=== PATIENT | male | born 1970 | race Caucasian/White ===

== ENCOUNTER 2020-01-23 16:59 | Inpatient (IN) ==
--- NOTE | 2020-01-23 17:26 | Emergency Department Note ---
Impression & Plan Acute upper abdominal pain ED Provider Note INFORMANT: Patient ED PROVIDER(S): Robel Henley MD CHIEF COMPLAINT: Chest pain PLAN: Disposition: Admitted Condition: Good MEDICAL DECISION MAKING: Patient presented with upper abdominal pain and substernal chest pain complaints. His ECG did not reveal any acute findings. Physical examination did reveal tenderness in the epigastrium. Patient declined analgesia initially. He had blood work obtained. He was prepped for CT imaging. He did have mild leukocytosis on CBC. Chemistry panel was unremarkable. The patient underwent CT imaging and this did not reveal any acute intra-abdominal findings. Chest imaging was negative as well. The patient had an elevated troponin. In light of this he was given a dose of oral aspirin and Nitropaste was applied. He was mildly hypertensive. He may have had a cardiac event in the recent days given the duration of symptoms and elevated troponin. Hemodynamically he is stable at this point time. He will need further evaluation in the hospital. Consultation was made with Dr. Hitchcock of the hospitalist service. The patient was evaluated and admitted for further treatment. Triage Nursing notes reviewed and agree them. Additional history obtained from patient's . Vital Signs: reviewed and remarkable for mild hypertension Differential diagnosis: PUD, pancreatitis, biliary pathology, cardiac sources, Appendicitis, testicular torsion, infections, diverticulitis, UTI, obstruction, mesenteric ischemia, aortic pathology, inflammatory bowel disease, renal colic, hernia, volvulus, constipation, as well as other pathologies. Diagnostics interpreted by me: ECG: Rate:82 Rhythm:Normal sinus [place]:Normal QRS:Normal ST segements:No elevation or depression Other:No PACs or PVCs Cardiac Monitoring: Cardiac monitoring ordered by me: The patient was placed on continuous cardiac monitoring and observed. It revealed a normal sinus rhythm at 85beats per minute without ectopy or evidence of dysrhythmia. Imaging studies: Chest x-ray. Findings: A chest x-ray was performed and revealed no pneumothorax, effusion, infiltrate, pulmonary edema, free air under the diaphragm, or wide mediastinum. Impression: No acute disease. CT scan of the abdomen pelvis with IV and oral contrast was performed and was negative for acute process. Consultation(s): [facility] service HPI: The patient is a 49 year old male who presents to the Emergency Room with complaints of epigastric abdominal/ substernal chest pain. This started several days ago and is persisting. The patient also notes the following associated symptoms, pain radiating to the shoulders and left elbow, pain radiating to the back. The patient has found no relieving factors. Current pain is rated as 5/10. No prior surgeries or similar issues in the past. Pt denies LOC, headache, fevers, chills, diaphoresis, visual changes, neck pain, chest pain, breathing difficulties, nausea, vomiting, back pain, melena, hematochezia, urinary symptoms, numbness, weakness, lymphadenopathy, rash, or other complaints. ROS: See above HPI for pertinent positives & negatives. A total of 10 systems reviewed and were otherwise negative. PAST MEDICAL HISTORY:See Below, acid reflux PAST SURGICAL HISTORY:See Below, wisdom teeth FAMILY HISTORY:See Below SOCIAL HISTORY:See Below, occasional alcohol. Smokes. HOME MEDICATIONS:See Below ALLERGIES:See Below VITALS:See Below PHYSICAL EXAMINATION: GENERAL: Awake, alert, mildly uncomfortable-appearing, in no distress HENT: Normocephalic, atraumatic. Oropharynx unremarkable. EYES: Normal conjunctiva. Sclera non-icteric. NECK: Inspection normal. Non-tender. Supple. No nuchal rigidity. FROM. No masses. RESPIRATORY: Clear to auscultation. No wheezes. No rales. Normal respiratory effort. CARDIAC: Normal rate. Normal rhythm. No murmurs. No rubs. Extremities warm and well perfused. Pulses equal. No JVD. GI: Soft, non-distended. Bilateral upper quadrant and epigastric tenderness to palpation. No rebound or guarding. No masses. RECTAL: Deferred. MUSCULOSKELETAL: Atraumatic. Chest examination reveals no tenderness. The back is symmetrical on inspection without obvious abnormality. There is no CVA tenderness to palpation. No joint edema. LOWER EXTREMITIES: Calves are equal size bilaterally and non-tender. No edema. No discoloration. NEURO: Normal sensorium. No sensory or motor deficits noted. SKIN: No rash or jaundice noted. ED COURSE: Critical Care: None Robel Henley MD Past Med/Surg History Medical History (Updated 01/23/20 @ 17:23 by Robel Henley MD) Sleep apnea Vitamin D deficiency Surgical History S/P wisdom tooth extraction Family History Father , Secondary to Epileptic seizure in late 30's. Epilepsia Mother , at age 38 from MVC No problems noted. Grandmother (Maternal) Brain cancer Grandfather (Maternal) Diabetes Hypertension Brother Patent ductus arteriosus Pacemaker Pacer/Defibrillator Heart disease Grandmother Cancer Other No family history of bleeding disorder Denies family history of Ovarian cancer Prostate cancer Hearing loss Allergies Myocardial infarction Breast cancer Colorectal cancer Stroke Asthma Social History Smoking Status: Current every day smoker Tobacco Type: Cigarettes Age Started Using Tobacco: 16; packs per day: 0.5; Second Hand Exposure: Yes; Hx Alcohol Use: Yes Alcohol type: beer Alcohol Intake Frequency: 4 or More x per/Week Hx Substance Use: No Preferred Language: Danish Communication Ability: Effective Visual Impairment: No Limitations Hearing Ability: Normal marital status: Current Living Situation: Spouse current occupational status: employed 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 Feels Safe at Home: Yes Childhood Exposure to Second-Hand Smoke: Yes Dental Care, Regularly: Yes Physical Activity Frequency: 5-6 Times per Week Seatbelt Use: sometimes Sunscreen Use: No Do you think of yourself as: straight/heterosexual Allergies Allergies Allergy/AdvReac Type Severity Reaction Status Date / Time prednisone AdvReac Severe Difficulty Verified 01/23/20 18:21 Breathing venom-honey bee AdvReac Unknown Swelling Verified 01/23/20 18:21 of Lip/Tongue/Throat Home Meds Home Medications Medication Instructions Recorded Confirmed acetaminophen 500 mg tablet 500 mg PO Q6H PRN 05/19/19 01/23/20 cholecalciferol (vitamin D3) 50 50 mcg PO DAILY 05/19/19 01/23/20 mcg (2,000 unit) capsule omeprazole 20 mg capsule,delayed 20 mg PO DAILY 05/19/19 01/23/20 release ascorbic acid (vitamin C) 1,000 mg 2 g PO DAILY tab 12/08/19 01/23/20 tablet cetirizine 10 mg tablet 10 mg PO DAILY 12/08/19 01/23/20 ibuprofen 200 mg tablet 200 mg PO QID PRN tab 12/08/19 01/23/20 multivitamin 1 tab PO DAILY 12/08/19 01/23/20 turmeric 400 mg capsule 500 mg PO DAILY cap 12/08/19 01/23/20 fluticasone propionate 2 spray INTRANASAL DAILY 01/23/20 01/23/20 Previous Rx's Medication Instructions Recorded azelastine 137 mcg (0.1 %) nasal 2 spray INTNAS BID #30 ml 09/21/19 spray aerosol montelukast 10 mg tablet 10 mg PO QPM #30 tab 09/21/19 cyclobenzaprine 10 mg tablet 10 mg PO TID PRN #30 tab 09/27/19 tadalafil 20 mg tablet See Rx Instructions PO DAILY PRN 10/27/19 #18 tab Results & Data (ED) Vital Signs Vital Signs - 24 hr 01/23/20 17:06 01/23/20 17:28 01/23/20 19:03 Temperature 37.0 C Temperature Source Oral Pulse Rate 86 89 Pulse Rate [Apical] 90 87 Pulse Rhythm Regular Respiratory Rate 18 20 20 Respiratory Effort / Characteristics Non-Labored Spontaneous Non-Labored Spontaneous Non-Labored Spontaneous Respiratory Depth Normal Normal Normal Respiratory Pattern Regular Regular Regular Blood Pressure 158/93 H Blood Pressure [Right Arm] 153/98 H 140/92 Blood Pressure Mean 114 Blood Pressure Mean [Right Arm] 116 108 Pulse Oximetry 96 96 94 Oxygen Delivery Method Room Air Room Air Room Air Sepsis Recent Fever Within 48 Hours No Sepsis New/Unexplained Change in Mental Status No Sepsis Action Taken by Nursing No Action Required Laboratory Data Result diagrams: 01/23/20 17:21 01/23/20 17:21 Lab Results 01/23/20 01/23/20 01/23/20 Range/Units 17:21 17:21 17:21 WBC 12.97 H (4.8-10.8) K/uL RBC 5.16 (4.7-6.1) M/uL Hgb 15.2 (14.0-18.0) g/dL Hct 43.9 (42-52) % MCV 85.1 (80-100) fL MCH 29.5 (25-34) pg MCHC 34.6 (32-36) g/dL RDW Std Deviation 40.7 (36.4-46.3) fL RDW Coeff of [place] 13.2 (11.5-14.5) % Plt Count 347 (130-400) K/uL MPV 9.1 (7.4-10.4) fL Immature Gran % (Auto) 0.2 % Neut % (Auto) 67.6 % Lymph % (Auto) 18.2 % [place] % (Auto) 9.4 % Eos % (Auto) 4.1 % Baso % (Auto) 0.5 % Neut # (Auto) 8.77 H (1.4-6.5) K/uL Lymph # (Auto) 2.36 (1.2-3.4) K/uL [place] # (Auto) 1.22 H (0.11-0.59) K/uL Eos # (Auto) 0.53 H (0-0.5) K/uL Baso # (Auto) 0.06 (0-0.2) K/uL Immature Gran # (Auto) 0.03 H (0.00-0.02) K/uL PT 10.7 (9.0-12.0) Seconds INR 1.0 (0.9-1.1) APTT 30.1 (21.0-31.0) Seconds PTT Ratio 1.1 Sodium 139 (136-145) mmol/L Potassium 4.2 (3.5-5.1) mmol/L Chloride 107 (98-107) mmol/L Carbon Dioxide 28 (21-32) mmol/L Anion Gap 4.0 (3-11) BUN 19 H (7-18) mg/dl Creatinine 0.97 (0.6-1.4) mg/dl Est Cr Clr Drug Dosing 121.2 ml/min Est GFR ( Amer) 105.8 Est GFR (Non-Af Amer) 91.3 BUN/Creatinine Ratio 19.9 (10-20) Glucose 94 (70-99) mg/dl Calcium 9.3 (8.5-10.1) mg/dl Total Bilirubin 0.2 (0.2-1) mg/dl AST 24 (15-37) U/L ALT 44 (12-78) U/L Alkaline Phosphatase 80 (45-117) U/L Troponin I 0.431 H* (0-0.045) ng/ml Total Protein 7.7 (6.4-8.2) gm/dl Albumin 3.8 (3.4-5.0) gm/dl Globulin 3.9 (2.5-4.0) gm/dl Albumin/Globulin Ratio 1.0 (0.9-2) Lipase 219 (73-393) U/L Administered Medications Discontinued Medications Aspirin (Aspirin Chew 324 Mg) 324 mg PO NOW STA Stop: 01/23/20 18:55 Last Admin: 01/23/20 19:08 Dose: 324 mg Documented by: [id number] Ioversol (Ioversol 100ml) 91 ml IV ONCE ONE Stop: 01/23/20 18:22 Last Admin: 01/23/20 18:21 Dose: 91 ml Documented by: [id number] Nitroglycerin (Nitroglycerin 2% Ointment 30gm Tube) 0.5 inch EXT NOW STA Stop: 01/23/20 18:55 Last Admin: 01/23/20 19:08 Dose: 0.5 inch Documented by: [id number] Discharge Plan Visit Data Chief Complaint: Chest Pain Stated Complaint: CHEST PAIN ED Provider: Robel Henley Discharge Problem: Acute upper abdominal pain Forms Stand Alone Forms: [facility] Prescriptions Prescriptions: No Action cyclobenzaprine 10 mg tablet 10 mg PO TID PRN (Reason: muscle spasm) Qty: 30 RF: 0 tadalafil [Cialis] 20 mg tablet See Rx Instructions PO DAILY PRN (Reason: sexual activity) Qty: 18 RF: 2 omeprazole 20 mg capsule,delayed release(DR/EC) 20 mg PO DAILY RF: 0 cholecalciferol (vitamin D3) 50 mcg (2,000 unit) capsule 50 mcg PO DAILY RF: 0 acetaminophen [Tylenol Extra Strength] 500 mg tablet 500 mg PO Q6H PRN (Reason: Pain) RF: 0 montelukast [Singulair] 10 mg tablet 10 mg PO QPM Qty: 30 RF: 5 azelastine 137 mcg (0.1 %) aerosol,spray 2 spray INTNAS BID Qty: 30 RF: 2 cetirizine [Zyrtec] 10 mg tablet 10 mg PO DAILY RF: 0 multivitamin Tablet 1 tab PO DAILY RF: 0 turmeric 400 mg capsule 500 mg PO DAILY RF: 0 ascorbic acid (vitamin C) 1,000 mg tablet 2 g PO DAILY RF: 0 ibuprofen 200 mg tablet 200 mg PO QID PRN (Reason: Pain) RF: 0 fluticasone propionate 50 mcg/actuation spray,suspension 2 spray intranasal DAILY RF: 0
[2020-01-23 17:31] LABS: Basophils # (auto) 0.06 K/uL (0-0.2); Basophils % (auto) 0.5 %; Eosinophils # (auto) 0.53 K/uL (0-0.5); Eosinophils % (auto) 4.1 %; Hematocrit (blood only) 43.9 % (42-52); Hemoglobin 15.2 g/dL (14.0-18.0); Immature Granulocytes # (auto) 0.03 K/uL (0.00-0.02); Immature Granulocytes % (auto) 0.2 %; Lymphocytes # (auto) 2.36 K/uL (1.2-3.4); Lymphocytes % (auto) 18.2 %; Mean Corpuscular Hemoglobin 29.5 pg (25-34); Mean Corpuscular Hgb Conc 34.6 g/dL (32-36); Mean Corpuscular Volume 85.1 fL (80-100); Mean Platelet Volume 9.1 fL (7.4-10.4); Monocytes # (auto) 1.22 K/uL (0.11-0.59); Monocytes % (auto) 9.4 %; Neutrophils # (auto) 8.77 K/uL (1.4-6.5); Neutrophils % (auto) 67.6 %; Platelet Count 347 K/uL (130-400); RDW Coefficient of Variation 13.2 % (11.5-14.5); RDW Standard Deviation 40.7 fL (36.4-46.3); Red Blood Count 5.16 M/uL (4.7-6.1); White Blood Count 12.97 K/uL (4.8-10.8)
[2020-01-23 17:46] LABS: Partial Thromboplastin Ratio 1.1; Partial Thromboplastin Time 30.1 Seconds (21.0-31.0); Prothrombin Time 10.7 Seconds (9.0-12.0)
[2020-01-23 17:48] LABS: Albumin Level 3.8 gm/dl (3.4-5.0); BUN Creatinine Ratio 19.9 (10-20); Calcium 9.3 mg/dl (8.5-10.1); Creatinine Clr Calc Pharmacy 121.2 ml/min; Est GFR (African American) 105.8; Est GFR (Non-African American) 91.3; Potassium 4.2 mmol/L (3.5-5.1)
[2020-01-23 17:54] LABS: Bilirubin,Total 0.2 mg/dl (0.2-1); Globulin 3.9 gm/dl (2.5-4.0); Total Protein 7.7 gm/dl (6.4-8.2); Troponin I 0.431 ng/ml (0-0.045)
--- NOTE | 2020-01-23 18:00 | XRay Report ---
XR chest 1V portable HISTORY: Atypical Chest Pain COMPARISON: None. FINDINGS: The lungs are clear. The cardiac silhouette is mildly enlarged. No pleural effusions. No pn eumothorax. No evidence for pulmonary edema. No focal lung consolidations to suggest pneumonia. IMPRESSION: Mild cardiomegaly. ACT 112: Negative or not required by law. Electronically signed by: Jorge Weir M.D. 01/23/2020 5:59 PM
[2020-01-23] MEDS ORDERED: IOVERSOL 100ml IV ONE (18:21)
--- NOTE | 2020-01-23 18:49 | CT Scan Report ---
ABDOMEN AND PELVIS CT WITH IV AND ORAL CONTRAST CT DOSE: 1277.65 mGy.cm HISTORY: epigastric abd pain. short oral prep please. TECHNIQUE: Multiaxial CT images of the abdomen and pelvis were performed following the use of intrave nous and oral contrast. A dose lowering technique was utilized adhering to the principles of ALARA. COMPARISON STUDY: None. FINDINGS: A few bibasilar linear densities consistent with subsegmental atelectasis. A single promine nt right pericardial lymph node measuring 9 mm. No pneumoperitoneum. No pneumatosis. No suspicious ly tic or blastic osseous lesions. Tiny fat-containing bilateral inguinal hernias. The liver, gallbladde r, pancreas, spleen, adrenal glands, and kidneys are within normal limits. No hydronephrosis. The sadaf n portal vein is patent. Normal caliber abdominal aorta. Mild calcified plaque within the abdominal a mindy. No retroperitoneal lymphadenopathy. There is a left circumaortic renal vein. The bladder is unr emarkable. No pelvic free fluid. No bowel wall thickening or obstruction. Normal appendix. IMPRESSION: 1. No bowel wall thickening or obstruction. 2. Normal appendix. 3. No hydronephrosis. ACT 112: Negative or not required by law. Electronically signed by: Jorge Weir M.D. 01/23/2020 6:48 PM
[2020-01-23] MEDS ORDERED: NITROGLYCERIN 2% OINTMENT 30GM TUBE EXT STA (18:54)
[2020-01-23] MEDS ORDERED: ASPIRIN CHEW 324 MG PO STA (18:54)
--- NOTE | 2020-01-23 19:42 | History & Physical Report ---
Date of Service January 23, 2020 Assessment & Plan (1) Epigastric pain: Pt is a 49yo with a PMHx of chronic sinusitis, seasonal allergies, dizziness, erectile dysfunction, GERD, mild KHLOE who presents with periodic epigastric pain of 5 days duration and was admitted for ACS rule-out. ACS rule-out -Pt has chest/epigastric pain mainly with exertion -EKG with no signs of ischemia, troponins elevated to 0.431 -will trend troponins q6h -echo ordered and pending -Nitrobid 0.5inch q6h as needed for chest pain -aspirin 324mg given in the ED, continue with aspirin 81mg daily -Cardiology consulted, appreciate recs -will admit to med/surg with tele for continued cardiac monitoring Seasonal Allergies -continue home cetirizine 10mg daily -continue singulair 10mg started by his PCP GERD -continue home omeprazole/formulary alternative Erectile Dysfunction -hold home tadalafil 20mg tablet KHLOE -mild -states he does not use CPAP at home as he is claustrophobic Dizziness -periodic -was supposed to be worked up with what sounds like a stress echo but was cancelled due to the COVID pandemic. FEN/GI: Heart Healthy diet CODE STATUS: Full code DVT prophylaxis: Lovenox SQ Dispo: Med/Surg with tele (2) Seasonal allergies: (3) Lower back pain: (4) Chronic sinusitis: (5) Erectile dysfunction: (6) Dizziness: (7) Vitamin D deficiency: (8) Sleep apnea: History of Present Illness Primary Care Provider: Enrique Arthur, III, MATCH [employer] Pt is a 49yo with a PMHx of chronic sinusitis, seasonal allergies, dizziness, erectile dysfunction, GERD, mild KHLOE who presents with periodic epigastric pain of 5 days duration and was admitted for ACS rule-out. He states that the epigastric pain woke him up from sleep 5 days ago and was persistent throughout the day with radiation to his left shoulder and bilateral arms. Described the pain as sharp, 5/10 at max and was NOT associated with diaphoresis or N/V. It was mostly associated with exertion.States he was treating the pain at home with ibuprofen which provided some symptomatic relief. Was also doing some research online and came in today to rule out an acute cholecystitis. Does not have the pain currently. States he has no Hx of MIs in the past and denies a Hx of HTN, HLD or diabetes. Is a 30 year smoker of 3/4 ppd. Was due to have a stress echo done which was cancelled due to the COVID pandemic. PMhx: as above Fam Hx: Mom in an accident at age 34. Dad had epilepsy. Social Hx: smokes "a little less" than 1ppd, drinks a 6 pack a week and no recreational drug use. 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 Allergies Allergy/AdvReac Type Severity Reaction Status Date / Time prednisone AdvReac Severe Difficulty Verified 01/23/20 18:21 Breathing venom-honey bee AdvReac Unknown Swelling Verified 01/23/20 18:21 of Lip/Tongue/Throat Home Medications Home Medications Medication Instructions Recorded Confirmed Type acetaminophen 500 mg tablet 500 mg PO Q6H PRN 05/19/19 01/23/20 History cholecalciferol (vitamin D3) 50 50 mcg PO DAILY 05/19/19 01/23/20 History mcg (2,000 unit) capsule omeprazole 20 mg capsule,delayed 20 mg PO DAILY 05/19/19 01/23/20 History release azelastine 137 mcg (0.1 %) nasal 2 spray INTNAS BID #30 ml 09/21/19 01/23/20 Rx spray aerosol montelukast 10 mg tablet 10 mg PO QPM #30 tab 09/21/19 01/23/20 Rx cyclobenzaprine 10 mg tablet 10 mg PO TID PRN #30 tab 09/27/19 01/23/20 Rx tadalafil 20 mg tablet See Rx Instructions PO DAILY PRN 10/27/19 01/23/20 Rx #18 tab ascorbic acid (vitamin C) 1,000 mg 2 g PO DAILY tab 12/08/19 01/23/20 History tablet cetirizine 10 mg tablet 10 mg PO DAILY 12/08/19 01/23/20 History ibuprofen 200 mg tablet 200 mg PO QID PRN tab 12/08/19 01/23/20 History multivitamin 1 tab PO DAILY 12/08/19 01/23/20 History turmeric 400 mg capsule 500 mg PO DAILY cap 12/08/19 01/23/20 History fluticasone propionate 2 spray INTRANASAL DAILY 01/23/20 01/23/20 History Past Med/Surg History Medical History (Updated 01/23/20 @ 20:33 by Vianca Mercado MD) Sleep apnea Vitamin D deficiency Surgical History S/P wisdom tooth extraction Family History Father , Secondary to Epileptic seizure in late 30's. Epilepsia Mother , at age 38 from MVC No problems noted. Grandmother (Maternal) Brain cancer Grandfather (Maternal) Diabetes Hypertension Brother Patent ductus arteriosus Pacemaker Pacer/Defibrillator Heart disease Grandmother Cancer Other No family history of bleeding disorder Denies family history of Ovarian cancer Prostate cancer Hearing loss Allergies Myocardial infarction Breast cancer Colorectal cancer Stroke Asthma Social History Smoking Status: Current every day smoker Tobacco Type: Cigarettes Age Started Using Tobacco: 16; packs per day: 0.5; Second Hand Exposure: Yes; Hx Alcohol Use: Yes Alcohol type: beer Alcohol Intake Frequency: 4 or More x per/Week Hx Substance Use: No Preferred Language: Turkmen Communication Ability: Effective Visual Impairment: No Limitations Hearing Ability: Normal 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 Beliefs That Will Affect Care: None marital status: Current Living Situation: Spouse current occupational status: employed 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 Other Information That Helps Us Care for You: No Feels Safe at Home: Yes Safety Concerns: Feels Safe At This Time Childhood Exposure to Second-Hand Smoke: Yes Dental Care, Regularly: Yes Physical Activity Frequency: 5-6 Times per Week Seatbelt Use: sometimes Sunscreen Use: No Do you think of yourself as: straight/heterosexual Assistive Devices: Glasses Review of Systems Constitutional: no fever, no chills, no sweats and no fatigue Eyes: no worsening vision Ear, Nose, Mouth, Throat: + nasal congestion and + post nasal drip; no sore throat Respiratory: no cough, no dyspnea and no dyspnea on exertion Cardiovascular: + chest pain and + radiating jaw, neck or arm pain; no dyspnea at rest, no palpitations and no edema Gastrointestinal: no abdominal pain, no nausea, no vomiting, no dysphagia, no constipation, no diarrhea/loose stools and no blood in stools Genitourinary: no dysuria Musculoskeletal: + back pain Integumentary: no rash Neurologic: + tingling, + numbness and + headache(s); no syncope and no confusion Psychiatric: no confusion Physical Exam Physical Exam: General: Alert, oriented. No acute distress, sitting up in bed Skin: No noted rashes or bruises Psych: Appropriate mood and affect Neuro: No gross deficits HEENT: NC/AT Chest: Nontender to palpation. CV: RRR, Normal s1, s2. No murmurs appreciated Resp: Breath sounds clear and decreased on left, some wheezing noted on right, no increased effort of breathing. Abdomen: BS+. Soft, nontender, nondistended. No guarding. No organomegaly appreciated. Extremities: No edema in lower extremities bilaterally. Results & Data Results & Data ([facility]) Vital Signs (Past 12 Hours) Vital Signs Temp Pulse Pulse Resp BP BP Pulse Ox 01/23/20 19:03 87 20 140/92 94 01/23/20 17:28 89 90 20 153/98 H 96 01/23/20 17:06 37.0 C 86 18 158/93 H 96 Laboratory Results Lab Results 01/23/20 01/23/20 01/23/20 Range/Units 17:21 17:21 17:21 WBC 12.97 H (4.8-10.8) K/uL RBC 5.16 (4.7-6.1) M/uL Hgb 15.2 (14.0-18.0) g/dL Hct 43.9 (42-52) % MCV 85.1 (80-100) fL MCH 29.5 (25-34) pg MCHC 34.6 (32-36) g/dL RDW Std Deviation 40.7 (36.4-46.3) fL RDW Coeff of Citlalli 13.2 (11.5-14.5) % Plt Count 347 (130-400) K/uL MPV 9.1 (7.4-10.4) fL Immature Gran % (Auto) 0.2 % Neut % (Auto) 67.6 % Lymph % (Auto) 18.2 % Dade % (Auto) 9.4 % Eos % (Auto) 4.1 % Baso % (Auto) 0.5 % Neut # (Auto) 8.77 H (1.4-6.5) K/uL Lymph # (Auto) 2.36 (1.2-3.4) K/uL Dade # (Auto) 1.22 H (0.11-0.59) K/uL Eos # (Auto) 0.53 H (0-0.5) K/uL Baso # (Auto) 0.06 (0-0.2) K/uL Immature Gran # (Auto) 0.03 H (0.00-0.02) K/uL PT 10.7 (9.0-12.0) Seconds INR 1.0 (0.9-1.1) APTT 30.1 (21.0-31.0) Seconds PTT Ratio 1.1 Sodium 139 (136-145) mmol/L Potassium 4.2 (3.5-5.1) mmol/L Chloride 107 (98-107) mmol/L Carbon Dioxide 28 (21-32) mmol/L Anion Gap 4.0 (3-11) BUN 19 H (7-18) mg/dl Creatinine 0.97 (0.6-1.4) mg/dl Est Cr Clr Drug Dosing 121.2 ml/min Est GFR ( Amer) 105.8 Est GFR (Non-Af Amer) 91.3 BUN/Creatinine Ratio 19.9 (10-20) Glucose 94 (70-99) mg/dl Calcium 9.3 (8.5-10.1) mg/dl Total Bilirubin 0.2 (0.2-1) mg/dl AST 24 (15-37) U/L ALT 44 (12-78) U/L Alkaline Phosphatase 80 (45-117) U/L Troponin I 0.431 H* (0-0.045) ng/ml Total Protein 7.7 (6.4-8.2) gm/dl Albumin 3.8 (3.4-5.0) gm/dl Globulin 3.9 (2.5-4.0) gm/dl Albumin/Globulin Ratio 1.0 (0.9-2) Lipase 219 (73-393) U/L 01/23/20 Range/Units 23:03 WBC (4.8-10.8) K/uL RBC (4.7-6.1) M/uL Hgb (14.0-18.0) g/dL Hct (42-52) % MCV (80-100) fL MCH (25-34) pg MCHC (32-36) g/dL RDW Std Deviation (36.4-46.3) fL RDW Coeff of Citlalli (11.5-14.5) % Plt Count (130-400) K/uL MPV (7.4-10.4) fL Immature Gran % (Auto) % Neut % (Auto) % Lymph % (Auto) % Dade % (Auto) % Eos % (Auto) % Baso % (Auto) % Neut # (Auto) (1.4-6.5) K/uL Lymph # (Auto) (1.2-3.4) K/uL Dade # (Auto) (0.11-0.59) K/uL Eos # (Auto) (0-0.5) K/uL Baso # (Auto) (0-0.2) K/uL Immature Gran # (Auto) (0.00-0.02) K/uL PT (9.0-12.0) Seconds INR (0.9-1.1) APTT (21.0-31.0) Seconds PTT Ratio Sodium (136-145) mmol/L Potassium (3.5-5.1) mmol/L Chloride (98-107) mmol/L Carbon Dioxide (21-32) mmol/L Anion Gap (3-11) BUN (7-18) mg/dl Creatinine (0.6-1.4) mg/dl Est Cr Clr Drug Dosing ml/min Est GFR ( Amer) Est GFR (Non-Af Amer) BUN/Creatinine Ratio (10-20) Glucose (70-99) mg/dl Calcium (8.5-10.1) mg/dl Total Bilirubin (0.2-1) mg/dl AST (15-37) U/L ALT (12-78) U/L Alkaline Phosphatase (45-117) U/L Troponin I 0.560 H* (0-0.045) ng/ml Total Protein (6.4-8.2) gm/dl Albumin (3.4-5.0) gm/dl Globulin (2.5-4.0) gm/dl Albumin/Globulin Ratio (0.9-2) Lipase (73-393) U/L Diagnostic Findings XR chest 1V portable HISTORY: Atypical Chest Pain COMPARISON: None. FINDINGS: The lungs are clear. The cardiac silhouette is mildly enlarged. No pleural effusions. No pneumothorax. No evidence for pulmonary edema. No focal lung consolidations to suggest pneumonia. IMPRESSION: Mild cardiomegaly. ACT 112: Negative or not required by law. Electronically signed by: Jorge Weir M.D. 01/23/2020 5:59 PM Dictated: 01/23/201756 Transcribed: 01/23/201756 ------ ABDOMEN AND PELVIS CT WITH IV AND ORAL CONTRAST CT DOSE: 1277.65 mGy.cm HISTORY: epigastric abd pain. short oral prep please. TECHNIQUE: Multiaxial CT images of the abdomen and pelvis were performed following the use of intravenous and oral contrast. A dose lowering technique was utilized adhering to the principles of ALARA. COMPARISON STUDY: None. FINDINGS: A few bibasilar linear densities consistent with subsegmental atelectasis. A single prominent right pericardial lymph node measuring 9 mm. No pneumoperitoneum. No pneumatosis. No suspicious lytic or blastic osseous lesions. Tiny fat-containing bilateral inguinal hernias. The liver, gallbladder, pancreas, spleen, adrenal glands, and kidneys are within normal limits. No hydronephrosis. The main portal vein is patent. Normal caliber abdominal aorta. Mild calcified plaque within the abdominal aorta. No retroperitoneal lymphadenopathy. There is a left circumaortic renal vein. The bladder is unremarkable. No pelvic free fluid. No bowel wall thickening or obstruction. Normal appendix. IMPRESSION: 1. No bowel wall thickening or obstruction. 2. Normal appendix. 3. No hydronephrosis. ACT 112: Negative or not required by law. Electronically signed by: Jorge Weir M.D. 01/23/2020 6:48 PM Dictated: 01/23/201841 Transcribed: 01/23/201841 ECG Additional Comments: NSR at 82, normal axix, BZ=446, QRS=94, GYv=713 Supervising Physician Co-Signing Physician Notes Patient seen and examined, chart reviewed, case discussed with Dr. Mercado and I agree with her assessment and plan as documented above. Briefly, patient is a 49yo C male with history of GERD, KHLOE presenting with 4 days of epigastric/back pain, somewhat exertional. No SOB/palpitations/diaphoresis/nausea/vomiting. Presently CP free Troponin mildly elevated at 0.431, repeat increasing to 0.[address] elevation On physical exam patient is afebrile, mildly hypertensive otherwise HD stable, NAD Skin -no rash HEENT - NC/AT, PERRL, EOMI, MMM, Neck supple Heart - +S1/S2, regular, no m/r/g, no reproducible CW pain, no carotid bruits, pulses 2+ Lungs - CTA, +coarse breath sounds with faint end-expiratory wheezing throughout Abd - +BS, soft, NT/ND Ext - No edema Labs and images reviewed Assessment/Plan - 49yo C male with 4 days of epigastric discomfort, mildly elevated troponin. Presently patient is without chest discomfort -Admit to medical with telemetry -Trend troponin -Check 2D echo in AM -Repeat EKG in AM -Zyrtec, Flonase and nasal saline for management of sinus complaints -Check lipids and AIC with AM labs for risk stratification -Remainder of plan as above Resident Activity Tracking Resident Involvement: Resident Care Provided Care Provided: Adult Hospital Medicine (1) Chronic sinusitis Sinusitis location: maxillary Qualified Code(s): J32.0 - Chronic maxillary sinusitis
[2020-01-23] MEDS ORDERED: NITROGLYCERIN 2% OINTMENT 30GM TUBE EXT PRN (21:32)
[2020-01-23] MEDS ORDERED: ALUMINUM/MAGNESIUM/SIMETH (MAALOX MAX) 30 ML UDC PO PRN (21:32)
[2020-01-23] MEDS ORDERED: POLYETHYLENE (MIRALAX) 17 GM PACK PO PRN (21:32)
[2020-01-23] MEDS ORDERED: ONDANSETRON INJ 2 MG/ML 2 ML VIAL IV PRN (21:32)
[2020-01-23] MEDS ORDERED: ACETAMINOPHEN 500 MG TAB PO PRN (21:32)
[2020-01-23] MEDS: ENOXAPARIN INJ 40 MG/0.4 ML SYR SQ SCH (22:24)
[2020-01-23] MEDS: MONTELUKAST SODIUM 10 MG TABLET PO SCH (22:24)
[2020-01-24] MEDS ORDERED: SODIUM CHLORIDE 0.65% NA SOLN 45 ML (OCEAN) PRN (00:27)
--- NOTE | 2020-01-24 00:27 | Billing Data ---
Date of Service January 23, 2020 Coding Level of Care Code 50361 Initial Inpt Care Lvl 2
[2020-01-24 05:54] LABS: Basophils # (auto) 0.07 K/uL (0-0.2); Basophils % (auto) 0.7 %; Eosinophils # (auto) 0.49 K/uL (0-0.5); Eosinophils % (auto) 4.7 %; Hematocrit (blood only) 45.4 % (42-52); Hemoglobin 15.4 g/dL (14.0-18.0); Immature Granulocytes # (auto) 0.01 K/uL (0.00-0.02); Immature Granulocytes % (auto) 0.1 %; Lymphocytes # (auto) 2.02 K/uL (1.2-3.4); Lymphocytes % (auto) 19.3 %; Mean Corpuscular Hemoglobin 29.2 pg (25-34); Mean Corpuscular Hgb Conc 33.9 g/dL (32-36); Mean Platelet Volume 9.2 fL (7.4-10.4); Monocytes # (auto) 0.81 K/uL (0.11-0.59); Monocytes % (auto) 7.7 %; Neutrophils # (auto) 7.06 K/uL (1.4-6.5); Neutrophils % (auto) 67.5 %; Platelet Count 361 K/uL (130-400); RDW Coefficient of Variation 13.4 % (11.5-14.5); RDW Standard Deviation 42.1 fL (36.4-46.3); Red Blood Count 5.28 M/uL (4.7-6.1); White Blood Count 10.46 K/uL (4.8-10.8)
[2020-01-24 06:17] LABS: BUN Creatinine Ratio 15.3 (10-20); Calcium 9.5 mg/dl (8.5-10.1); Creatinine Clr Calc Pharmacy 132.4 ml/min; Est GFR (African American) 116.9; Est GFR (Non-African American) 100.9; Potassium 4.2 mmol/L (3.5-5.1)
[2020-01-24 08:00] LABS: Estimated Average Glucose 120 mg/dl; Hemoglobin A1C 5.8 % (4.5-5.6)
[2020-01-24] MEDS: ASPIRIN 81 MG ECTAB PO SCH (08:08)
[2020-01-24] MEDS: PANTOprazole 40 MG TAB PO SCH (08:08)
[2020-01-24] MEDS: CHOLECALCIFEROL 1,000 UNITS 25 MCG TAB PO SCH (08:09)
[2020-01-24] MEDS: CETIRIZINE HCL 10 MG TABLET PO SCH (08:09)
[2020-01-24] MEDS: FLUTICASONE PROPIONATE NA SPR 16 GM BTL SCH (08:10)
--- NOTE | 2020-01-24 08:40 | Electrocardiogram Report ---
Test Reason : Blood Pressure : / mmHG Vent. Rate : 082 BPM Atrial Rate : 082 BPM P-R Int : 152 ms QRS Dur : 094 ms QT Int : 362 ms P-R-T Axes : 027 008 019 degrees QTc Int : 422 ms Normal sinus rhythm Normal ECG No previous ECGs available Confirmed by Koko Omer ([id number]) on 01/24/2020 8:40:32 AM Referred By: REFERRED SELF Confirmed By:Koko Omer
--- NOTE | 2020-01-24 08:55 | Medical Student Progress Note ---
Date of Service January 24, 2020 Assessment & Plan (1) Epigastric pain: Mr. Randolph is 49y/o M with 20-25 pack years, KHLOE (mild, no CPAP), allergic rhinitis, no Hx of LA, no HTN, no HLD, no DM, missed stress Echo w/u for dizziness, who presented with epigastric pain and admitted for ACS r/o, went to salvage [facility] today and was stented. ACS rule-out Exertional epigastric pain radiating to left shoulder relieved by nitroglycerin no previous hx of LA, HTN, HLD, DM significant risk fx: 20-25 pack years, obesity, dyslipidemia missed stress Echo w/u for dizziness few months ago troponin today 0.73, up from 0.56 on admission, will continue to trend lipid panel ordered significant for TG of 265 EKG on this adm: NSR, normal EKG Echo today: preserved LV function with subtle base to mid inferior hypokinesis Cardiology consulted, decision was made to take patient to salvage laborer cath: 2 stents placed in pRCA continue nitrobid 0.5in q6h prn chest pain continue ASA 81mg QD start atorvastatin 80mg QD start beta reuben and ANA inhibitor will need to monitor HR and BP will start DPT per cardiology GERD continue home omeprazole KHLOE mild, not on CPAP Could consider outpatient sleep study dizziness periodic with significant sinus congestion cancelled stress Echo due to covid pandemic CAD may be playing role? FEN/GI: heart healthy diet full code DVT ppx: lovenox SQ dispo: PCU/ICU for cardiac monitoring status post stent placement Admission and Anticipated Discharge Date Admission Date: January 23, 2020 Supervising Attestation Medical Student Supervision Note: I was personally present during medical student patient encounter and independently interviewed and examined the patient and verified the frances history and physical, reviewed labs and image studies, discussed the case with Jh Hernandez and agree with the findings and care plan. Chest pain with mild troponin elevation - now s/p C with stent placement continue asa, statin, b reuben, ACEi anticipate d/c home in am. Subjective He was able to sleep well overnight with nitrobid that has significant relieved pain. Still continues to have slight discomfort in epigastric area. He is having some back pain that he attributes to poor bed support. Between seeing him management trainee and later morning during rounds with the team, he had some significant epigastric pain again radiating down the L arm, which resolved with burping. He was taken to salvage laborer today and 2 stents were placed in [facility]. Review of Systems Constitutional: no fever, no chills, no sweats, no fatigue and no weakness Ear, Nose, Mouth, Throat: + nasal congestion and + post nasal drip Respiratory: + wheezing; no dyspnea and no pain on inspiration Cardiovascular: no chest pain, no dyspnea and no orthopnea Gastrointestinal: + abdominal pain (slight discomfort in epigastric area); no nausea, no vomiting and no change in stools Genitourinary: no dysuria and no urinary frequency Musculoskeletal: + back pain Physical Exam Constitutional: no acute distress Respiratory: normal respiratory effort and symmetric chest movement Auscultation: + wheezes Cardiovascular: RRR, no murmur, no edema Heart Sounds: normal S1 and normal S2; no gallop, no murmur and no cardiac rub Vessels: normal peripheral pulses Gastrointestinal (Abdomen): Inspection/Auscultation: abdomen normal to inspection and normal bowel sounds; abdomen not distended Percussion/Palpation: + abdomen tender (epigastric area slightly TTP) and abdomen soft; no guarding and no hepatosplenomegaly no significant tenderness to deep palpation of RUQ and LUQ, negative Carr Psychiatric: A+Ox3, euthymic affect Results & Data ([facility]) Vital Signs (Past 12 Hours) Vital Signs Temp Pulse Pulse Pulse Resp BP BP 01/24/20 07:42 36.7 C 70 20 124/83 01/24/20 07:28 81 01/24/20 03:30 36.7 C 98 H 20 129/78 01/23/20 22:54 36.7 C 73 18 143/77 H 01/23/20 22:20 81 01/23/20 22:08 36.7 C 78 18 137/78 01/23/20 21:24 77 01/23/20 20:59 80 20 127/83 Pulse Ox 01/24/20 07:42 92 01/24/20 07:28 01/24/20 03:30 97 01/23/20 22:54 93 01/23/20 22:20 01/23/20 22:08 92 01/23/20 21:24 01/23/20 20:59 93
--- NOTE | 2020-01-24 09:47 | Cardiology Consultation ---
Date of Consultation January 24, 2020 Assessment & Plan (1) ACS (acute coronary syndrome): 2. Dyslipidemia 3. Ongoing tobacco use 4. Obesity, mild KHLOE Presentation consistent with acute coronary syndrome. Patient at elevated risk for adverse cardiac events and recommend proceeding with further invasive evaluation. Discussed cardiac catheterization with patient and and they are willing to proceed. Plan to perform via right radial artery later today. In interim continue aspirin, start heparin infusion, start statin. Further recommendations pending findings. History of Present Illness Attending Physician: Keely Morales MD History of Present Illness Mr. Randolph is a very pleasant 49-year-old man seen today for suspected acute coronary syndrome. Patient with no prior cardiac history. Chronic medical issues include GERD, mild obstructive sleep apnea, chronic sinusitis and intermittent dizziness. No family history of premature coronary artery disease. Ongoing smoker, around a pack per day for 30 years. Patient reports stuttering epigastric discomfort/substernal chest pain for the last several days. Pain radiates to his left shoulder and left elbow. Pain at its worst 5 out of 10. Largely chest pain-free this morning. Admitted overnight, intermittently hypertensive to the 160s. ECG showed sinus rhythm without ST changes. Troponin elevated at 0.43 and has trended up to 0.73 this morning. Chest x-ray, CT of abdomen pelvis unremarkable. Echo today showed preserved LV function with subtle base to mid inferior hypokinesis. Allergies Allergy/AdvReac Type Severity Reaction Status Date / Time prednisone AdvReac Severe Difficulty Verified 01/23/20 18:21 Breathing venom-honey bee AdvReac Unknown Swelling Verified 01/23/20 18:21 of Lip/Tongue/Throat Home Medications Home Medications Medication Instructions Recorded Confirmed Type acetaminophen 500 mg tablet 500 mg PO Q6H PRN 05/19/19 01/23/20 History cholecalciferol (vitamin D3) 50 50 mcg PO DAILY 05/19/19 01/23/20 History mcg (2,000 unit) capsule omeprazole 20 mg capsule,delayed 20 mg PO DAILY 05/19/19 01/23/20 History release azelastine 137 mcg (0.1 %) nasal 2 spray INTNAS BID #30 ml 09/21/19 01/23/20 Rx spray aerosol montelukast 10 mg tablet 10 mg PO QPM #30 tab 09/21/19 01/23/20 Rx cyclobenzaprine 10 mg tablet 10 mg PO TID PRN #30 tab 09/27/19 01/23/20 Rx tadalafil 20 mg tablet See Rx Instructions PO DAILY PRN 10/27/19 01/23/20 Rx #18 tab ascorbic acid (vitamin C) 1,000 mg 2 g PO DAILY tab 12/08/19 01/23/20 History tablet cetirizine 10 mg tablet 10 mg PO DAILY 12/08/19 01/23/20 History ibuprofen 200 mg tablet 200 mg PO QID PRN tab 12/08/19 01/23/20 History multivitamin 1 tab PO DAILY 12/08/19 01/23/20 History turmeric 400 mg capsule 500 mg PO DAILY cap 12/08/19 01/23/20 History fluticasone propionate 2 spray INTRANASAL DAILY 01/23/20 01/23/20 History Patient History Medical History (Updated 01/24/20 @ 09:50 by Ivan Brannon MD) Sleep apnea Vitamin D deficiency Surgical History S/P wisdom tooth extraction Family History Father , Secondary to Epileptic seizure in late s. Epilepsia Mother , at age 38 from MVC No problems noted. Grandmother (Maternal) Brain cancer Grandfather (Maternal) Diabetes Hypertension Brother Patent ductus arteriosus Pacemaker Pacer/Defibrillator Heart disease Grandmother Cancer Other No family history of bleeding disorder Denies family history of Ovarian cancer Prostate cancer Hearing loss Allergies Myocardial infarction Breast cancer Colorectal cancer Stroke Asthma Social History Smoking Status: Current every day smoker Tobacco Type: Cigarettes Age Started Using Tobacco: 16; packs per day: 0.5; Second Hand Exposure: Yes; Hx Alcohol Use: Yes Alcohol type: beer Alcohol Intake Frequency: 4 or More x per/Week Hx Substance Use: No Preferred Language: Kuwaiti Communication Ability: Effective Visual Impairment: No Limitations 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 Seating Required: No Beliefs That Will Affect Care: None marital status: Current Living Situation: Spouse current occupational status: employed 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[employer] Other Information That Helps Us Care for You: No Feels Safe at Home: Yes Safety Concerns: Feels Safe At This Time Childhood Exposure to Second-Hand Smoke: Yes Dental Care, Regularly: Yes Physical Activity Frequency: 5-6 Times per Week Seatbelt Use: sometimes Sunscreen Use: No Do you think of yourself as: straight/heterosexual Assistive Devices: Glasses Review of Systems Review of Systems: All systems reviewed & are unremarkable except as noted in HPI & below Physical Exam Physical Exam: General: Comfortable, no acute distress HEENT: Sclerae anicteric, mucous membranes moist Lungs: Clear to auscultation bilaterally, no rhonchi or wheezes Cardiac: Regular rate and rhythm, no murmurs. Abdomen: Soft, nontender, nondistended, positive bowel sounds. Extremities: Warm, well perfused, no edema. 2+ radial pulses Skin: No rashes or lesions. Neuro: Nonfocal Psych: Alert orient x3, normal affect and mood Results & Data ([facility]) Vital Signs (Past 12 Hours) Vital Signs Temp Pulse Pulse Resp BP BP Pulse Ox 01/24/20 07:42 98.1 F 70 20 124/83 92 01/24/20 07:28 81 01/24/20 03:30 98.1 F 98 H 20 129/78 97 01/23/20 22:54 98.1 F 73 18 143/77 H 93 01/23/20 22:20 81 01/23/20 22:08 98.1 F 78 18 137/78 92 PG Care Time/CCT Total # of Minutes Spent Total Time Spent with Patient: Total time spent is greater than 50% in coordination of care (as documented) at patient's floor/unit and/or counseling patient: Coding Level of Care Code 98485 Inpt Consult Level 4 Diagnoses ACS (acute coronary syndrome) I24.9
[2020-01-24] MEDS ORDERED: fentaNYL citrate 100 MCG/2 ML VIAL ONE (13:16)
[2020-01-24] MEDS ORDERED: HEPARIN (PORCINE) 1000 UNIT/ML 10 ML (CATH LAB USE ONLY) ONE ×2 (13:16→15:04)
[2020-01-24] MEDS ORDERED: niCARdipine HCL INJ 2.5 MG/ML 10 ML AMP ONE (13:16)
[2020-01-24] MEDS ORDERED: MIDAZOLAM HCL 1 MG/ML 2ML VIAL ONE (13:17)
[2020-01-24] MEDS ORDERED: NITROGLYCERIN/D5W 100MCG/ML 20ML SYR ONE (13:17)
[2020-01-24] MEDS ORDERED: TICAGRELOR 90 MG TAB PO ONE (15:26)
--- NOTE | 2020-01-24 15:42 | Pre Anesthesia Assessment ---
Date of Service January 24, 2020 Pre Sedation Assessment Vital Signs Temp Pulse Pulse Pulse Resp BP BP 01/24/20 15:35 73 16 138/99 01/24/20 11:21 98.1 F 82 16 134/85 01/24/20 07:42 98.1 F 70 20 01/24/20 07:28 81 01/24/20 03:30 98.1 F 98 H 20 129/78 01/23/20 22:54 98.1 F 73 18 01/23/20 22:20 81 01/23/20 22:08 98.1 F 78 18 137/78 01/23/20 21:24 77 01/23/20 20:59 80 20 01/23/20 20:30 87 18 01/23/20 20:08 98 H 14 01/23/20 20:00 92 H 16 158/83 H 01/23/20 19:31 88 22 01/23/20 19:30 90 22 143/98 H 01/23/20 19:03 87 20 01/23/20 19:01 87 16 01/23/20 19:00 88 19 140/92 01/23/20 18:55 85 21 132/95 01/23/20 18:31 84 24 01/23/20 18:30 86 21 159/92 H 01/23/20 18:00 91 H 21 160/99 H 01/23/20 17:37 106 H 13 01/23/20 17:30 88 18 169/104 H 01/23/20 17:28 89 90 20 01/23/20 17:06 98.6 F 86 18 158/93 H BP Pulse Ox 01/24/20 15:35 01/24/20 11:21 94 01/24/20 07:42 124/83 92 01/24/20 07:28 01/24/20 03:30 97 01/23/20 22:54 143/77 H 93 01/23/20 22:20 01/23/20 22:08 92 01/23/20 21:24 01/23/20 20:59 127/83 93 01/23/20 20:30 95 01/23/20 20:08 95 01/23/20 20:00 93 01/23/20 19:31 94 01/23/20 19:30 93 01/23/20 19:03 140/92 94 01/23/20 19:01 96 01/23/20 19:00 95 01/23/20 18:55 97 01/23/20 18:31 95 01/23/20 18:30 95 01/23/20 18:00 96 01/23/20 17:37 96 01/23/20 17:30 97 01/23/20 17:28 153/98 H 96 01/23/20 17:06 96 Cardiovascular RRR, no murmur, no edema Respiratory normal respiratory effort, lungs clear to auscultation Pre-Sedation Airway Assessment Smoking Status: Current every day smoker Short, Thick Neck: No Thyromental Distance: > or= 3.5 Finger Breadths Oral Cavity: + WNL Mallampati Class: III ASA: ASA3 NPO Status Date of Last Intake of Fluids: 01/23/20 Date of Last Intake of Solid Food: 01/23/20 Procedure Planning Contraindications for Sedation: none Current Medications Reviewed: Yes Notes The planned sedation has been discussed with the patient. Informed Consent was obtained. I have identified the patient, determined the appropriateness of sedation and have assessed the patient immediately prior to the procedure. All medicine(s) and interventions are by my order.
--- NOTE | 2020-01-24 15:42 | Post Anesthesia Assessment ---
Date of Service January 24, 2020 Post Sedation Assessment Vital Signs Temp Pulse Pulse Pulse Resp BP BP 01/24/20 15:35 73 16 138/99 01/24/20 11:21 98.1 F 82 16 134/85 01/24/20 07:42 98.1 F 70 20 01/24/20 07:28 81 01/24/20 03:30 98.1 F 98 H 20 129/78 01/23/20 22:54 98.1 F 73 18 01/23/20 22:20 81 01/23/20 22:08 98.1 F 78 18 137/78 01/23/20 21:24 77 01/23/20 20:59 80 20 01/23/20 20:30 87 18 01/23/20 20:08 98 H 14 01/23/20 20:00 92 H 16 158/83 H 01/23/20 19:31 88 22 01/23/20 19:30 90 22 143/98 H 01/23/20 19:03 87 20 01/23/20 19:01 87 16 01/23/20 19:00 88 19 140/92 01/23/20 18:55 85 21 132/95 01/23/20 18:31 84 24 01/23/20 18:30 86 21 159/92 H 01/23/20 18:00 91 H 21 160/99 H 01/23/20 17:37 106 H 13 01/23/20 17:30 88 18 169/104 H 01/23/20 17:28 89 90 20 01/23/20 17:06 98.6 F 86 18 158/93 H BP Pulse Ox 01/24/20 15:35 01/24/20 11:21 94 01/24/20 07:42 124/83 92 01/24/20 07:28 01/24/20 03:30 97 01/23/20 22:54 143/77 H 93 01/23/20 22:20 01/23/20 22:08 92 01/23/20 21:24 01/23/20 20:59 127/83 93 01/23/20 20:30 95 01/23/20 20:08 95 01/23/20 20:00 93 01/23/20 19:31 94 01/23/20 19:30 93 01/23/20 19:03 140/92 94 01/23/20 19:01 96 01/23/20 19:00 95 01/23/20 18:55 97 01/23/20 18:31 95 01/23/20 18:30 95 01/23/20 18:00 96 01/23/20 17:37 96 01/23/20 17:30 97 01/23/20 17:28 153/98 H 96 01/23/20 17:06 96 Recovery Score Activity: Moves 4 extremities Respiration: Deep Breath/Cough Circulation: +/-20% PreAnes Value Consciousness: Fully Awake Oxygen Saturation: > 92% On Room Air Post Anesthesia Score: 10 Discharge Sedation Level of Care: Fast Track Phase II Post Sedation Plan On clinical assessment, the patient appears to have tolerated the sedation without complications. Patient is recovering as anticipated. Patient will continue to be monitored by nursing and may be discharged when stefani tion discharge criteria are met per below protocol. Upon Completions of procedure up to 15 minutes continue every 5 minute vital signs and the P.A.R. score; then discharge to a Phase I or Fast Track to Phase II per the following guidelines: * Discharge Patient to appropriate Phase II area if PAR is 8 or greater or return to pre- procedure baseline. The post - procedure orders will be as directed. * If PAR score is less than 8 or not return to pre-procedure baseline then patient will follow Phase I monitoring till PAR is reached for Phase II. The Phase I may be done in procedure room or may call to secure a Phase I area. * If naloxone or flumazenil are used for reversal, hold in Phase I for continued monitoring from when last reversal dose was given for a minimum of 60 minutes or longer pending the nurse and/or physician discretion of patient condition before discharge to Phase II. Please call the Sedation Physician to re-evaluate and complete post-note for discharge to Phase II area. Do NOT discharge from procedure sedation or Phase 1 until post- sedation evaluation note is complete by procedure /sedation MD Sedation Discharge Instructions to be given to the patient at discharge to home.
--- NOTE | 2020-01-24 15:45 | Post Operative Brief Note ---
Cardiology Brief Post Op Date of Surgery January 24, 2020 Pre & Post Diagnosis Operation Date: 01/24/20 12:00 <No data on this case meets the specified criteria> Procedure Director [employer] Drake Brannon MD Chemist Intern [facility] Estimated Blood Loss 15 Findings See Below 95% acute proximal RCA. 50% mid circumflex diffuse distal LAD disease PCI of proximal RCA with 2.75 x 22 Willam (3.5 NC). Complications none Disposition Disposition: PCU
[2020-01-24] MEDS ORDERED: NITROGLYCERIN SL 0.4 MG/TAB TAB SL PRN (15:49)
[2020-01-24] MEDS ORDERED: SODIUM CHLORIDE 0.9% 1000ML 1,000 ML IV SCH (16:00)
--- NOTE | 2020-01-24 18:10 | Cardiac Catheterization ---
[facility] Data: Packaging Associate Cardiac Status Clinical evaluation leading to the procedure CAD Presenation: Non STEMI Anginal Classification: CCS IV Heart Failure: No Cardiogenic Shock within 24 Hours: No Cardiac Arrest within 24 Hours: No Imaging Studies Past 6 Months: No Stress Studies Past 6 Months: No Diagnostic Physicians Name: Drake Brannon MD Status: Elective Closure Device Percutaneous Entry Location: Radial Closure Device: Radial Band Recommendations: PCI without planned CABG PCI Indication: PCI for high risk Non-GABRIEL Lesion Segment Name: Proximal RCA Culprit Artery: Yes Stenosis Prior to Rx (%): 95 Chronic Total Occlusion: No IVUS: No Pre-Procedure BEULAH Flow: 3 Previously Treated Lesion: No Lesion Complexity: Non-High/Non-C Lesion Length (mm): 15 Thrombus Present: Yes Bifurcation Lesion: No Guidewire Across Lesion: Stenosis Post-Procedure (%): 0 Post-Procedure BEULAH Flow: 3 Devices(s) Deployed: Yes Yes Intraprocedure Events Significant Disection: No Perforation: No Cardiac Cath Procedure Full Procedure Date January 24, 2020 Pre-Procedure Diagnosis Pre-Procedure Diagnosis: Non STEMI AUC Score AUC Score: 8 Post-Procedure Diagnosis Post-Procedure Diagnosis: Severe CAD, Successful PCI and Normal Intracardiac Pressures Procedure(s) Performed Procedure(s) Performed: Coronary Angiography, Left Heart Cath and Drug Eluting Stent Mva Reactor Operator Drake Brannon MD Conference Director(s) Jane Estimated Blood Loss Estimated Blood Loss: 15 Medication(s) Medication(s): Fentanyl, Heparin, Lidocaine 1%, Nicardipine, Nitroglycerin and Versed Summary of Findings Indication: NSTEMI Access: 6 Fr slender right radial artery Catheters: [place], JR4 guide Findings: LM -luminal irregularities LAD -medium caliber, 20 to 30% diffuse proximal to mid disease, small distal vessel with severe diffuse disease and tapers off prior to apex. Large caliber first diagonal without significant disease. Medium caliber second diagonal without significant disease. Circumflex -medium caliber, 50 to 60% mid segment stenosis. Medium caliber high OM1 without significant disease. Medium caliber left PLB with 30 to 40% proximal stenosis. RCA -dominant, large caliber, 95% acute proximal stenosis, mid segment luminal irregularities, 40% distal disease. PDA and PLB luminal irregularities. LVEDP - 9 -- PCI -- Antithrombotic therapy: Heparin, ticagrelor Procedure: RCA cannulated with JR4 guide Cylinder Steamer 50 wire passed across lesion into distal vessel Proximal RCA lesion predilated with 2.5 compliant balloon Dilated lesion stented with 2.75 x 22 mm [place] drug-eluting stent Stent post-dilated with 3.5 noncompliant balloon IC vasodilators administered for spasm Post procedure BEULAH 3 flow, stent well expanded with minimal residual stenosis and no apparent cardiac complications. Arterial Closure: TR band Summary: 1. Acute 95% proximal RCA stenosis 2. Moderate nonculprit coronary artery disease 50 to 60% mid circumflex Diffuse severe disease in small apical LAD 40% distal RCA 3. Normal intracardiac filling pressure 4. Successful PCI of proximal RCA with single drug-eluting stent (2.75 x 22 mm Willam; postdilated with 3.5 NC). Recommendations: To PCU for continued monitoring Loaded with ticagrelor 180 mg in Packaging Associate Continue dual-antiplatelet therapy for at least 1 year Continue statin, and ASCVD risk factor modification Consult cardiac Rehab Hemodynamics Rest Ao:: 130/86/106 Final Ao: 160/89/119 LV: 142/9 Recommendations Recommendations: PCI without planned CABG Specimens Specimens: None Radiation Exposure (mGy) 2008 Contrast (mls) 95 Fluids (cc crystalloids) Fluids (cc crystalloids): 150 Drains Drains: None Anesthesia Moderate Procedural Complication(s) None Disposition PCU I attest to the content of the Intraoperative Record and any orders documented therein. Any exceptions are noted below. [facility] Card Cath Procedure Codes Cardiac Catheterization Procedure 1: Cardiovascular Cath Procedures: 73455 Coronaries and LHC (+/-LV) Moderate Sedation Procedure 1: Sedation/Anesthesia: 17620 Mod Sedation by the same physician;Init15 Min Child Age 5 & Up Procedure 2: Sedation/Anesthesia: 04041 Mod Sedation by the same physician; Ea [id number] Minutes Stenting Procedure 1: Cardiovascular Stent Procedures: 82658 Perc transcatheter placement of intracoronary stent(s), with ang PG Care Time/CCT Total # of Minutes Spent Total Time Spent with Patient: Total time spent is greater than 50% in coordination of care (as documented) at patient's floor/unit and/or counseling patient:
[2020-01-24] MEDS: lisinopril 5 MG TAB PO SCH (20:11)
[2020-01-24] MEDS: METOPROLOL TARTRATE 25 MG TAB PO SCH (20:19)
[2020-01-24] MEDS: MONTELUKAST SODIUM 10 MG TABLET PO SCH (22:04)
[2020-01-24] MEDS: ENOXAPARIN INJ 40 MG/0.4 ML SYR SQ SCH (22:04)
[2020-01-25] MEDS ORDERED: TICAGRELOR 90 MG TAB PO SCH (04:00)
[2020-01-25 07:21] LABS: Basophils # (auto) 0.06 K/uL (0-0.2); Basophils % (auto) 0.5 %; Eosinophils # (auto) 0.34 K/uL (0-0.5); Hematocrit (blood only) 44.9 % (42-52); Hemoglobin 15.4 g/dL (14.0-18.0); Immature Granulocytes # (auto) 0.02 K/uL (0.00-0.02); Immature Granulocytes % (auto) 0.2 %; Lymphocytes # (auto) 1.94 K/uL (1.2-3.4); Lymphocytes % (auto) 16.9 %; Mean Corpuscular Hemoglobin 29.4 pg (25-34); Mean Corpuscular Hgb Conc 34.3 g/dL (32-36); Mean Corpuscular Volume 85.9 fL (80-100); Mean Platelet Volume 9.3 fL (7.4-10.4); Monocytes % (auto) 8.7 %; Neutrophils # (auto) 8.09 K/uL (1.4-6.5); Neutrophils % (auto) 70.7 %; Platelet Count 324 K/uL (130-400); RDW Coefficient of Variation 13.2 % (11.5-14.5); RDW Standard Deviation 41.4 fL (36.4-46.3); Red Blood Count 5.23 M/uL (4.7-6.1); White Blood Count 11.45 K/uL (4.8-10.8)
[2020-01-25] MEDS: lisinopril 5 MG TAB PO SCH (07:54)
[2020-01-25] MEDS: METOPROLOL TARTRATE 25 MG TAB PO SCH (07:54)
[2020-01-25] MEDS: CETIRIZINE HCL 10 MG TABLET PO SCH (07:55)
[2020-01-25] MEDS: ASPIRIN 81 MG ECTAB PO SCH (07:55)
[2020-01-25] MEDS: PANTOprazole 40 MG TAB PO SCH (07:55)
[2020-01-25] MEDS: CHOLECALCIFEROL 1,000 UNITS 25 MCG TAB PO SCH (07:55)
[2020-01-25 07:58] LABS: BUN Creatinine Ratio 20.9 (10-20); Calcium 8.9 mg/dl (8.5-10.1); Creatinine Clr Calc Pharmacy 127.2 ml/min; Est GFR (African American) 114.3; Est GFR (Non-African American) 98.6; Potassium 4.2 mmol/L (3.5-5.1)
[2020-01-25] MEDS ORDERED: ATORVASTATIN 40 MG TAB PO SCH (09:00)
[2020-01-25] MEDS: FLUTICASONE PROPIONATE NA SPR 16 GM BTL SCH (10:17)
--- NOTE | 2020-01-25 11:37 | XCELERA ---
[id number]
--- NOTE | 2020-01-25 12:37 | Discharge Summary ---
Date of Service January 25, 2020 Admission HPI Per Admitting Provider Pt is a 49yo with a PMHx of chronic sinusitis, seasonal allergies, dizziness, erectile dysfunction, GERD, mild KHLOE who presents with periodic epigastric pain of 5 days duration and was admitted for ACS rule-out. He states that the epigastric pain woke him up from sleep 5 days ago and was persistent throughout the day with radiation to his left shoulder and bilateral arms. Described the pain as sharp, 5/10 at max and was NOT associated with diaphoresis or N/V. It was mostly associated with exertion.States he was treating the pain at home with ibuprofen which provided some symptomatic relief. Was also doing some research online and came in today to rule out an acute cholecystitis. Does not have the pain currently. States he has no Hx of MIs in the past and denies a Hx of HTN, HLD or diabetes. Is a 30 year smoker of 3/4 ppd. Was due to have a stress echo done which was cancelled due to the COVID pandemic. PMhx: as above Fam Hx: Mom in an accident at age 34. Dad had epilepsy. Social Hx: smokes "a little less" than 1ppd, drinks a 6 pack a week and no recreational drug use. 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 Admission Exam Per Admitting Provider General: Alert, oriented. No acute distress, sitting up in bed Skin: No noted rashes or bruises Psych: Appropriate mood and affect Neuro: No gross deficits HEENT: NC/AT Chest: Nontender to palpation. CV: RRR, Normal s1, s2. No murmurs appreciated Resp: Breath sounds clear and decreased on left, some wheezing noted on right, no increased effort of breathing. Abdomen: BS+. Soft, nontender, nondistended. No guarding. No organomegaly appreciated. Extremities: No edema in lower extremities bilaterally. Principal Diagnosis NSTEMI s/p PCI to RCA Discharge Exam Constitutional WD/WN, vitals as above Neck normal visual inspection Respiratory normal respiratory effort, lungs clear to auscultation Cardiovascular RRR, no murmur, no edema Gastrointestinal (Abdomen) normal bowel sounds, soft, nontender, no hepatosplenomegaly Musculoskeletal Extremities: no cyanosis and no clubbing Skin no rashes, warm and dry Psychiatric A+Ox3, euthymic affect Discharge Data Allergies Allergy/AdvReac Type Severity Reaction Status Date / Time prednisone AdvReac Severe Difficulty Verified 01/23/20 18:21 Breathing venom-honey bee AdvReac Unknown Swelling Verified 01/23/20 18:21 of Lip/Tongue/Throat Consultations 01/23/20 19:25 ED Decision to Admit Stat 01/23/20 21:42 Consult Cardiology Routine 01/24/20 15:49 Consult Cardiac Rehabilitation Routine Procedures Performed Operation Date: 01/24/20 12:00 Actual Procedures p Cath, Left with Cors and Vent(Not Applicable) - Ivan Brannon MD s Cineradiography w/Routine Exam - Ivan Brannon MD s Drug Eluting Stent SGl Vessel - Ivan Brannon MD Ordered Studies 01/23/20 17:20 CT abd pelvis oral and IV con Stat 01/24/20 08:30 CL Cath Imgs for PACS use only Routine Hospital Course (1) Epigastric pain: Pt is a 49yo with a PMHx of chronic sinusitis, seasonal allergies, dizziness, erectile dysfunction, GERD, mild KHLOE who presents with periodic epigastric pain of 5 days duration and was admitted for ACS rule-out. NSTEMI s/p PCI to RCA: - Admitted for ACS rule out given epigastric/chest pain with exertion that radiated to neck and down arms. - EKG without ST/T wave changes, however troponin trended upward from 0.431- >0.734. - Echo had EF 55-60% with mild base to mid inferior hypokinesis. - Underwent catheterization and PCI to RCA (which had 95% occlusion), has remained chest pain free since procedure. - Also noted 50 to 60% mid circumflex disease, diffuse severe disease in small apical LAD, 40% distal RCA. - Was started while admitted on asa 81mg daily, Brillinta 90mg BID, lisinopril 5mg daily, metoprolol 25mg BID, atorvastatin 40mg daily. - A1c noted to be 5.8 this admission, encouraged diet and exercise. Can consider metformin outpatient. - Patient was strongly encouraged to stop smoking, and advised to discuss medications such as Wellbutrin with PCP to curb cravings. Patient did not require nicotine patches while admitted. - Follow up with Dr. Brannon in 2 weeks. Seasonal Allergies: - continue home cetirizine 10mg daily - continue singulair 10mg started by his PCP GERD: - continue home omeprazole/formulary alternative Chronic Low Back Pain: - Advised to switch from ibuprofen to tylenol 1000mg TID PRN for back pain. Erectile Dysfunction: - Continue home tadalafil 20mg tablet KHLOE: - states he does not use CPAP at home as he is claustrophobic. - Strongly encouraged him to discuss CPAP further with his PCP as KHLOE is associated with high blood pressure, arrhythmia, stroke and heart failure. (2) Seasonal allergies: (3) Lower back pain: (4) Chronic sinusitis: (5) Erectile dysfunction: (6) Sleep apnea: (7) NSTEMI (non-ST elevated myocardial infarction): Total Time Total Time Spent Total Time Spent (In Minutes): see attending attestation Discharge Plan Discharge Items Patient Disposition: Home - Self-Care Reason For Visit: CHEST PAIN Discharge Diagnosis: coronary artery disease, with stent placement Activity: Per Instructions section Lifting: No more than 5 pounds Bathing: Keep incision dry Sexual Activity: When tolerated Exercise/Sports: Wait until after follow-up appointment Driving/Machine Use: Resume 1 day after discharge Weightbearing: Full weightbearing Non-emergency contact: Primary Care Provider and Table Top Tile Setter Call non-emergency contact if: you have any medication questions and your symptoms worsen Follow-up/Referrals: Enrique Arthur III, CRNP [Primary Care Provider] - 01/30/20 4:00 pm (follow up within 7 days) Ivan Brannon MD [Physician] - 01/31/20 2:30 pm (follow up in 2 weeks) Diet: Heart Healthy Add Attending Provider Instructions: You were admitted for pain in your abdomen and chest. You were found to have elevations in heart enzymes that suggested some heart damage. You had a heart catheterization which showed a blockage in one of the main vessels to the heart. They were able to balloon open the vessel and place a stent. You were monitored in the hospital for a day to make sure you did well, and then you were felt safe for discharge home with several new medications to help reduce your risk in the future of heart attack. Please see the instructions below on these new medications: 1) You were take a baby aspirin (81 milligrams) once daily. This medication helps make the blood a little bit thinner, so that the blood moves through the vessels more easily. 2) You will take lisinopril 5 milligrams once daily. This medication is a blood pressure medication that has been proven to help reduce and heart failure in people who have had a heart attack. 3) You will take metoprolol 25 milligrams every 12 hours (AM and PM). This is a medication which decreases the rate your heart squeezes, and also decreases how hard it squeezes, to help provide rest for the heart. 4) You will take atorvastatin 40 milligrams once daily. This is a cholesterol pill to help both reduce your cholesterol and to help stabilize cholesterol plaques that you already have to decrease risk of them breaking off and forming clots. 5) You will take Brillinta, another blood thinning medication, one pill every 12 hours. 6) The single biggest risk factor for heart disease and strokes is smoking. If you need help quitting smoking, please ask your primary care provider about medications such as Wellbutrin, which help decrease cravings. All of your new medications were sent to the [facility] in [place]. Please stop using ibuprofen and instead use tylenol 1000mg q8h as needed for your back pain. You can continue taking all of your other medications. You should have follow up with your primary care doctor, Dr. Arthur, within 7 days of discharge, to go over all of your new medications. If your sleep apnea requires CPAP, you should talk with Dr. Arthur about getting one. You will also have follow up with Dr. Brannon 2 weeks following discharge. You should avoid heavy lifting until your follow up appointment with Dr. Brannon. You can shower, and remove your bandage tomorrow. If you have return of the chest pain, trouble breathing, passing out, fevers over 100.4, please seek urgent medical evaluation. Please call either Dr. Arthur or Dr. Brannon for any further medication or symptom questions. Pending Studies at Discharge: No Stand-Alone Forms: My [facility] [employer], Work/School Release (Inpt), Smoking Cessation Medications and DC Order Prescriptions: New aspirin 81 mg Tablet,Delayed Release (Dr/Ec) 81 mg PO DAILY Qty: 30 RF: 0 lisinopril [Zestril] 5 mg Tablet 5 mg PO QAM Qty: 30 RF: 0 metoprolol tartrate 25 mg Tablet 25 mg PO BID Qty: 60 RF: 0 Brilinta 90 mg Tablet 90 mg PO BID Qty: 60 RF: 0 atorvastatin 40 mg tablet 40 mg PO DAILY Qty: 30 RF: 0 Continued cyclobenzaprine 10 mg tablet 10 mg PO TID PRN (Reason: muscle spasm) Qty: 30 RF: 0 tadalafil [Cialis] 20 mg tablet See Rx Instructions PO DAILY PRN (Reason: sexual activity) Qty: 18 RF: 2 omeprazole 20 mg capsule,delayed release(DR/EC) 20 mg PO DAILY RF: 0 cholecalciferol (vitamin D3) 50 mcg (2,000 unit) capsule 50 mcg PO DAILY RF: 0 acetaminophen [Tylenol Extra Strength] 500 mg tablet 500 mg PO Q6H PRN (Reason: Pain) RF: 0 montelukast [Singulair] 10 mg tablet 10 mg PO QPM Qty: 30 RF: 5 azelastine 137 mcg (0.1 %) aerosol,spray 2 spray INTNAS BID Qty: 30 RF: 2 cetirizine [Zyrtec] 10 mg tablet 10 mg PO DAILY RF: 0 multivitamin Tablet 1 tab PO DAILY RF: 0 turmeric 400 mg capsule 500 mg PO DAILY RF: 0 ascorbic acid (vitamin C) 1,000 mg tablet 2 g PO DAILY RF: 0 fluticasone propionate 50 mcg/actuation spray,suspension 2 spray intranasal DAILY RF: 0 Discontinued ibuprofen 200 mg tablet 200 mg PO QID PRN (Reason: Pain) RF: 0 Discharge Orders: Discharge Order (Routine); Ordered 01/25/20 Ordered By: Clara Levi/Other Patient Handouts: Cardiac Catheterization Dc, Eating Heart-Healthy Foods Admission Data Admit Date/Time: 01/23/20 19:42 Attending Provider: Keely Morales Admit Provider: Vianca Mercado Primary Care Provider: Enrique Arthur III Other Providers: Nuvia Hitchcock Charles C. Other Interventions: Discharge Summary Assessment (RN) Last Done: 01/25/20 12:46 Supervising Physician Co-Signing Physician Notes Resident Physician Supervision Note: I independently interviewed and examined the patient and verified the frances history and physical, reviewed labs and image studies, discussed the case with the resident Dr. Chong and agree with the findings and care plan. Resident Activity Tracking Resident Involvement: Resident Care Provided Care Provided: [facility]
--- NOTE | 2020-01-25 12:52 | Cardiology Progress Note ---
Date of Service January 25, 2020 Assessment & Plan (1) ACS (acute coronary syndrome): 2. Dyslipidemia 3. Ongoing tobacco use 4. Obesity, mild KHLOE Post PCI to proximal RCA yesterday. Has remained chest pain-free since procedure. No apparent access site complications. Post procedure labs stable. From a cardiac standpoint okay with discharge today. Home on aspirin, Brilinta. Continue metoprolol, lisinopril. Continue high intensity statin. Follow-up with me in 2 weeks. Admission and Anticipated Discharge Date Admission Date: January 23, 2020 Subjective Feeling well today. No recurrent chest pain. Able to sleep overnight. No other new concerns. Telemetry reviewedbrief PAT but no other significant events Review of Systems Review of Systems: All systems reviewed & are unremarkable except as noted in HPI & below Physical Exam Physical Exam: General: Comfortable, no acute distress HEENT: Sclerae anicteric, mucous membranes moist Lungs: Clear to auscultation bilaterally, no rhonchi or wheezes Cardiac: Regular rate and rhythm, no murmurs. Abdomen: Soft, nontender, nondistended, positive bowel sounds. Extremities: Warm, well perfused, no edema. Right radial artery access site with no ecchymosis, hematoma. Distal pulse and sensation intact. Skin: No rashes or lesions. Neuro: Nonfocal Psych: Alert orient x3, normal affect and mood Results & Data ([facility]) Vital Signs (Past 12 Hours) Vital Signs Temp Pulse Pulse Pulse Resp BP BP 01/25/20 12:46 98.4 F 71 61 19 110/65 125/67 01/25/20 11:46 98.4 F 71 19 125/67 01/25/20 08:12 79 01/25/20 07:41 97.5 F L 64 19 118/74 01/25/20 03:59 97.5 F L 61 16 110/65 Pulse Ox 01/25/20 12:46 94 01/25/20 11:46 94 01/25/20 08:12 01/25/20 07:41 93 01/25/20 03:59 95 PG Care Time/CCT Total # of Minutes Spent Total Time Spent with Patient: Total time spent is greater than 50% in coordination of care (as documented) at patient's floor/unit and/or counseling patient: Coding Level of Care Code 69393 Subseq Hosp Care Lvl 3 Diagnoses ACS (acute coronary syndrome) I24.9
--- NOTE | 2020-01-25 13:16 | Electrocardiogram Report ---
Test Reason : Blood Pressure : / mmHG Vent. Rate : 070 BPM Atrial Rate : 070 BPM P-R Int : 164 ms QRS Dur : 092 ms QT Int : 390 ms P-R-T Axes : 014 -04 029 degrees QTc Int : 421 ms Normal sinus rhythm Poor R wave progression, consider anterior AR vs. lead placement vs. LVH Abnormal ECG When compared with ECG of 23-JAN-2020 17:08, No significant change was found Confirmed by Koko Omer ([id number]) on 01/25/2020 1:16:18 PM Referred By: REFERRED SELF Confirmed By:Koko Omer
== END 2020-01-25 13:39 | disposition home or self-care (01) | DRG 247 ==
LOC: ED 16:59 → SUATTDRO 19:42 → 2N 19:42 → 2S 01-24 16:41